=== PATIENT | female | born 1945 | race Caucasian/White ===

== ENCOUNTER 2017-04-21 16:33 | Emergency (ER) | payer MEDICARE ==
[2017-04-21] MEDS ORDERED: NORCO 5/325 PO ONE (18:17)
--- NOTE | 2017-04-21 18:38 | Emergency Department Report ---
HPI - General Chief Complaint: Multiple Trauma Time Seen by Provider: 04/21/17 17:46 - HPI HPI: Room 10 The patient is 71-year-old female presenting with a chief complaint of fall. The patient was sent from the hospital after being found on the ground from a fall. The patient complains of pain in both forearms as well as her head. The patient is Yi-speaking only. When asked to give her pain a score from 0- 10 the patient replies "Mucho." Location: [see above] Duration: Today Quality: The pain Severity: "Mucho" Modifying factors: [see above] Context: [see above] Mode of transportation: [not driving] ED Past Medical Hx - Past Medical History Previous Medical History?: Yes Hx Hypertension: Yes Hx Dementia: Yes - Family History Family history: no significant - Social History Smoking Status: Never Smoker Substance Use Type: None - Medications Home Medications: Home Medications Medication Instructions Recorded Confirmed Last Taken Type Citalopram Hydrobromide [Celexa] 40 mg PO DAILY 04/21/17 04/21/17 04/20/17 History 40 Donepezil [Aricept] 10 mg PO QDAY 04/21/17 04/21/17 04/21/17 History Multivit-Min/Iron/Folic Acid/K 1 each PO DAILY 04/21/17 04/21/17 04/21/17 History [Multi-Day Plus Minerals Tablet] Potassium Chloride 10 meq PO TID 04/21/17 04/21/17 04/21/17 History QUEtiapine [SEROquel] 25 mg PO HS 04/21/17 04/21/17 04/20/17 History Triamter/Hctz 37.5-25 mg 2 tab PO DAILY 04/21/17 04/21/17 04/21/17 History [Maxzide-25] traMADol [Ultram] 50 mg PO Q6HR PRN #10 tablet 04/21/17 Unknown Rx traZODone [Desyrel] 50 mg PO QHS 04/21/17 04/21/17 04/20/17 History ED Review of Systems ROS: Stated complaint: FALL Other details as noted in HPI Comment: All other systems reviewed and negative Constitutional: denies: chills, fever Eyes: denies: eye pain, eye discharge, vision change ENT: denies: ear pain, throat pain Respiratory: denies: cough, shortness of breath, wheezing Cardiovascular: denies: chest pain, palpitations Endocrine: no symptoms reported Gastrointestinal: denies: abdominal pain, nausea, diarrhea Musculoskeletal: arthralgia, myalgia Neurological: headache Psychiatric: other (dementia) Physical Exam - Physical Exam Vital Signs: Vital Signs 04/21/17 04/21/17 10 17:09 17:46 18:00 Temperature 98.6 F Pulse Rate 62 Respiratory 18 Rate Blood Pressure 136/59 146/50 123/53 Blood Pressure 136/59 [Right] O2 Sat by Pulse 100 100 100 Oximetry Physical Exam: GENERAL: The patient is well-developed well-nourished female sitting on stretcher not appearing to be in acute distress. [] HEENT: Normocephalic. Atraumatic. Extraocular motions are intact. Patient has moist mucous membranes. NECK: Supple. Trachea midline CHEST/LUNGS: Clear to auscultation. There is no respiratory distress noted. HEART/CARDIOVASCULAR: Regular. There is no tachycardia. There is no gallop rub or murmur. ABDOMEN: Abdomen is soft, nontender. Patient has normal bowel sounds. There is no abdominal distention. SKIN: There is no rash. There is no edema. There is no diaphoresis. NEURO: The patient is awake and alert. The patient is cooperative. The patient has no focal neurologic deficits. The patient has normal speech. Cranial nerves II through XII grossly intact, no drift, cupola man equal bilaterally. Normal sensation throughout. Moves all extremity is well MUSCULOSKELETAL: There is tenderness to palpation of bilateral forearms. There are no deformities seen. ED Course Vital Signs 04/21/17 04/21/17 04/21/17 17:09 17:46 18:00 Temperature 98.6 F Pulse Rate 62 Respiratory 18 Rate Blood Pressure 136/59 146/50 123/53 Blood Pressure 136/59 [Right] O2 Sat by Pulse 100 100 100 Oximetry ED Medical Decision Making - Radiology Data Radiology results: report reviewed (CT head, CT cervical spine), image reviewed (CT head, CT cervical spine, bilateral forearm x-ray) interpreted by me: Bilateral forearm x-ray-no acute fractures CT head (read by radiologist)- no CT evidence of acute cranial pathology. CT cervical spine (read by radiologist)-no evidence of acute cervical fracture - Differential Diagnosis ICH, skull fracture, cervical fracture, closed head injury, forearm fractur Critical care attestation.: If time is entered above; I have spent that time in minutes in the direct care of this critically ill patient, excluding procedure time. ED Disposition Clinical Impression: Closed head injury, Contusion of forearm, left, Contusion of forearm, right Disposition: DC-01 TO HOME OR SELFCARE Is pt being admited?: No Does the pt Need Aspirin: No Condition: Stable Instructions: Minor Head Injury (ED) Additional Instructions: Return to the emergency department immediately should you develop worsening symptoms, fever, inability to tolerate food or liquid or any other concerns. Prescriptions: traMADol [Ultram] 50 mg PO Q6HR PRN #10 tablet PRN Reason: Pain Referrals: PRIMARY CARE, [Primary Care Provider] - 3-5 Days Time of Disposition: 20:06
--- NOTE | 2017-04-21 19:45 | Cat Scan Report ---
FINAL REPORT PROCEDURE: CT HEAD/BRAIN WO CON TECHNIQUE: Computerized tomography of the head was performed without contrast material. HISTORY: Pain after fall. COMPARISON: No prior studies are available for comparison. FINDINGS: Skull and scalp: Normal. Paranasal sinuses: Normal. Ventricles and subarachnoid spaces: Mild prominence of the ventricular systems. Cerebrum: No evidence of hemorrhage, acute infarction or mass. Atrophy. Moderate periventricular white matter change. Subtle high attenuation in the midbrain/saulo. Cerebellum and brainstem: No evidence of hemorrhage, acute infarction or mass. Vasculature: Moderate atherosclerosis of the cavernous ICA. Comments: Narrowing and irregularity about the predental interval. Possible 8.5 millimeter soft tissue density at the left vertex. IMPRESSION: No CT evidence of acute intracranial pathology. Atrophy, ventricular prominence felt to be in proportion to the degree of atrophy. White matter change, likely chronic small vessel ischemic change. Subtle high attenuation in the mid brain/saulo likely artifact. Consider MRI of the brain for further evaluation if there is continued clinical concern and if patient has no contraindication to MRI. Narrowing and irregularity of the predental interval, likely chronic/degenerative. Please correlate with CT scan of the cervical spine. Possible small soft tissue density about the left vertex, may represent subcutaneous process such as sebaceous cyst but consider small hematoma. Consider clinical correlation.
--- NOTE | 2017-04-21 19:57 | Cat Scan Report ---
FINAL REPORT PROCEDURE: CT CERVICAL SPINE WO CON TECHNIQUE: Computerized tomography of the cervical spine was performed from the skull base to T1 without contrast material. HISTORY: Pain after fall. COMPARISON: CT scan of the brain dated same day and time. FINDINGS: C1-2: Narrowing and mild irregularity about the predental interval. C2-3: Diffuse disc bulge with mild thecal sac effacement. C3-4: Mild left facet arthropathy. Small uncovertebral osteophytes. Diffuse disc bulge with mild thecal sac effacement. C4-5: Small posterior and uncovertebral osteophytes. Mild bilateral facet arthropathy. Slight canal stenosis and foraminal narrowing. Small disc osteophyte complex. C5-6: Moderate to severe disc space narrowing and vacuum disc change. Posterior and uncovertebral osteophytes. Mild to moderate canal stenosis and foraminal narrowing. Diffuse disc bulge. C6-7: Similar to above level. C7-T1: No significant abnormality. Other: Mild osteopenia. Multilevel osteophytes. Slight retrolisthesis at C5-6. Minimal retrolisthesis at C6-7. Aortic tortuosity and calcification. Moderate atherosclerosis of the cavernous ICAs. IMPRESSION: Osteopenia and degenerative change. No CT evidence of cervical spine fracture. Narrowing and irregularity at the predental interval is felt to most likely be chronic/degenerative. Slight C5-6 and C6-7 listhesis, also felt to most likely be chronic/degenerative. Consider MRI of the cervical spine for further evaluation if there is continued clinical concern and if patient has no contraindication to MRI. Atherosclerosis.
[2017-04-21 20:41] VITALS: BP 169/46
--- NOTE | 2017-04-21 22:00 | XRay Report ---
FINAL REPORT PROCEDURE: XR FOREARM BILAT 2V TECHNIQUE: BILATERAL forearm radiographs, AP and lateral views. HISTORY: pain after fall COMPARISON: No prior studies are available for comparison. FINDINGS: Fracture (s) and/or Dislocation(s): A small ossific density is noted anterior to the right radiocarpal joint measuring 1.5 millimeters. Joint space(s): Normal. Soft tissues: Normal. Bone mineralization: Right lunate demonstrates lytic and sclerotic areas with irregularity of the proximal articular surface Foreign bodies: None. IMPRESSION: Lytic and sclerotic areas of the right lunate are suspicious for changes of avascular necrosis. A small ossific density of the right wrist anteriorly may represent an avulsion fracture fragment. CT scan or MRI is recommended for further evaluation.
== END 2017-04-21 21:15 | disposition home or self-care (01) ==
LOC: ED 16:33
DX: S50.12XA Contusion of left forearm, initial encounter (principal); S50.11XA Contusion of right forearm, initial encounter; S09.90XA Unspecified injury of head, initial encounter; I10 Essential (primary) hypertension; W18.30XA Fall on same level, unspecified, initial encounter; Y93.89 Activity, other specified; Y92.89 Other specified places as the place of occurrence of the external cause; Y99.8 Other external cause status
CPT/HCPCS: 70450; 72125; 99284